=== PATIENT | female | born 1945 | race Caucasian/White ===

== ENCOUNTER → 2016-08-28 | Outpatient (CLI) | payer MEDICARE, OTHER ==
[~2016-08-28] MED LIST: ACETAMINOPHEN PO; ACETAMINOPHEN650 M1 PO; ALBUTEROL17 GM INH; ANEXSIA 7.5/3251 TA1 PO; ATENOLOL PO; CATAFLAM50 MG PO; COZAAR100 MG PO; DILTIAZEM ER60 MG PO; DOXYCYCLINE HY100 M3 PO; FEMARA2.5 MG PO; FUROSEMIDE40 MG PO; HCTZ PO; K-DUR20 ME1 PO; LEVAQUIN750 M1 PO; LIPITOR20 MG PO; LIPITOR40 MG PO; LOPRESSOR PO; LORTAB 7.51 TAB PO; METOPROLOL TAR100 MG PO; NORVASC PO; NORVASC10 MG PO; PRADAXA150 MG PO; PREDNISONE PO; PRILOSEC PO; PROAIR HFA8.5 GM INH; SYMBICORT 16010.2 GM INH; SYMBICORT INH; XANAX0.5 MG PO; XARELTO20 MG PO
[2016-08-28 13:50] LABS: HEMATOCRIT 36.1 % (35.0-45.0); MEAN CELL VOLUME 89.7 FL (83-96); MEAN CORPUSCULAR HEMOGLOBIN 29.9 PG (28-34); MEAN CORPUSCULAR HGB CONC 33.3 g/dL (30-36); MEAN PLATELET VOLUME 7.8 FL (6.5-11.5); RED BLOOD COUNT 4.03 X10e (3.90-5.30); RED CELL DISTRIBUTION WIDTH 19.4 % (11.0-15.5); WHITE BLOOD COUNT 8.2 X10e3 (4.0-10.5)
[2016-08-28 14:42] LABS: BLOOD UREA NITROGEN 13 mg/dL (9-23); BUN/CREATININE RATIO 18.57; CALCIUM SERUM 9.2 mg/dL (8.4-10.2); CARBON DIOXIDE 29 mmol/L (22-31); CHLORIDE 98 mmol/L (100-111); CREATININE SERUM 0.7 mg/dL (0.6-1.4); GLOM FILT RATE Estimated ABOVE60 mL/min (>60); GLUCOSE FASTING 146 mg/dL (70-110); SODIUM 138 mmol/L (135-145)
[2016-08-28 14:45] LABS: POTASSIUM 2.6 mmol/L (3.5-5.1)
== END | disposition home or self-care (01) ==
LOC: CAMB 12:05
PROVIDERS: Surgery
DX: Z01.812 Encounter for preprocedural laboratory examination (principal); C50.912 Malignant neoplasm of unspecified site of left female breast
CPT/HCPCS: 36415; 80048; 82947; 83735; 85027

== ENCOUNTER 2016-09-04 13:36 | Inpatient (IN) | payer MEDICARE, OTHER ==
--- NOTE | ~2016-09-04 | CO ---
Unit #: [id number] #: [id number] Patient: WILL HUNTER [id number] [address] [place], [place] [address] [id number] I MR#: [id number] NAME: WILL HUNTER ROOM: 320 Age: 71 Sex: F Admission Date: 09/04/2016 : 1945 Attending Physician: Philippe Teran M.D. Primary Care Physician: Amalia Boyd M.D. CONSULTATION REPORT REASON FOR CONSULTATION Atrial fibrillation with rapid ventricular response. HISTORY OF PRESENT ILLNESS This is a 71-year-old white female who is known to Dr. Rodriguez and has a history of hypertension, hyperlipidemia, chronic systolic heart failure and nonobstructive coronary artery disease. Her last echocardiogram in April found her to have an ejection fraction of 30% to 35%. 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 She is followed by Dr. Mathias and was scheduled last week for bilateral mastectomies but was cancelled because of hypokalemia. Her cancer has now advanced to the right breast. For the past 3-4 weeks she has been having a complaint of dyspnea at rest and on exertion. She went to her primary care physician's office and was treated for COPD exacerbation with steroid and antibiotics. She has been taking Mini-Neb treatments every 4 hours at home. She has been unable to sleep because of dyspnea. She sleeps propped up where she reports paroxysmal nocturnal dyspnea and orthopnea. She is positive for leg edema, as well. She has no reported chest pain or dizziness. She did have an episode where she felt like she was so dyspneic that she may pass out. She reports a nonproductive cough but no fever or chills. Upon further questioning, she also states she drinks a lot of water. She went to the office today and was directly admitted. She was noted to be in atrial fibrillation with rapid ventricular response with a rate up to 130 beats per minute. BNP elevated at 924. Electrolytes are within normal limits. She has been on chronic anticoagulation with Xarelto. PAST MEDICAL HISTORY 1. Lexiscan Cardiolite stress test, 05/30/2016, shows a medium sized area of stress-induced ischemia involving the anterior wall. Ejection fraction of 32%. 2. Cardiac catheterization, 05/31/2016, showed ejection fraction of 35%. Mid LAD 30%. Left main, circumflex, right coronary arteries normal. There was [id number] mitral regurgitation. 3. Two-D echocardiogram, 05/24/2016, showed an ejection fraction of 30% to 35% with moderate left and right atrial enlargement. Moderate mitral regurgitation and moderate tricuspid regurgitation. Right ventricular systolic pressure 40 mmHg. 4. Paroxysmal atrial fibrillation, on anticoagulation with Xarelto. 5. Hypertension. 6. Hyperlipidemia. 7. Chronic systolic heart failure. Unit #: [id number] #: [id number] Patient: WILL HUNTER 8. Diabetes mellitus type 2. 9. COPD. 10. Inflammatory left breast cancer, stage IV, status post chemotherapy with metastasis to the left breast. 11. Former smoker. PAST SURGICAL HISTORY 1. Appendectomy. 2. Hysterectomy. SOCIAL HISTORY The patient lives at home alone. She has a daughter who assists her with her care when needed. She previously smoked 1 pack to 1 1/2 packs of cigarettes daily but quit late last year. She denies illicit drug and alcohol use. FAMILY HISTORY Positive for pacemaker in her father. Mother had atrial fibrillation. ALLERGIES Penicillin. HOME MEDICATIONS 1. Diltiazem 60 mg daily. 2. Cozaar 100 mg daily. 3. Xarelto 20 mg daily. 4. Letrozole 2.5 mg daily. 5. Lopressor 100 mg t.i.d. 6. Lipitor 20 mg q.h.s. 7. Hydrocodone/acetaminophen 7.5/325 t.i.d. p.r.n. 8. Acetaminophen 325 mg q.4 hours p.r.n. 9. Furosemide 40 mg b.i.d. 10. Doxycycline 100 mg b.i.d. REVIEW OF SYSTEMS CONSTITUTIONAL: Negative for fever or chills. No weakness or fatigue. HEENT: No headache, hearing or visual changes or difficulty with swallowing. Negative for dizziness. CARDIOVASCULAR: Has no symptoms of angina. Positive for palpitations. Reports paroxysmal nocturnal dyspnea and orthopnea. No syncope. RESPIRATORY: Positive for dyspnea at rest and on exertion. Has a nonproductive cough. No hemoptysis. GASTROINTESTINAL: No abdominal pain, nausea or vomiting. No constipation or melena. EXTREMITIES: Positive for lower extremity edema. PHYSICAL EXAMINATION VITAL SIGNS: Blood pressure 153/98, heart rate 128, temperature 97.6. GENERAL: This is a very pleasant well-developed 71-year-old white female who is in no acute respiratory distress. NEUROLOGIC: She is awake, alert and oriented. There are no focal weaknesses. NECK: Trachea is midline. No thyromegaly or lymphadenopathy. No jugular venous distention. CARDIOVASCULAR: S1, S2. Heart sounds are normal with a soft systolic murmur heard best at the apex. No rubs or clicks. Irregularly irregular rhythm that is tachycardic. ABDOMEN: Soft, nontender with bowel sounds present. Unit #: [id number] #: [id number] Patient: WILL HUNTER EXTREMITIES: With 1+ leg edema. SKIN: Pale and dry. DIAGNOSTIC STUDIES LABORATORY STUDIES: Hemoglobin 12, hematocrit 37.7, platelet count 260, white count 9.7. Sodium 135, potassium 3.9, BUN 17, creatinine 1.1, glucose 124. Troponin less than 0.03. BNP 924. IMAGING: CAT scan of the chest pending. Chest x-ray pending. CARDIOVASCULAR STUDIES: Electrocardiogram - Atrial fibrillation with rapid ventricular response with a rate of 133 beats per minute. IMPRESSION 1. Acute on chronic systolic heart failure with reduced ejection fraction of 30% to 35%. 2. Paroxysmal atrial fibrillation with rapid ventricular response, on chronic anticoagulation with Xarelto. 3. Left inflammatory breast cancer status post chemotherapy with metastasis to the right breast. 4. Nonobstructive coronary artery disease per cardiac catheterization, 05/31/2016, with LAD 30% stenosis. 5. COPD. 6. Valvular heart disease with moderate mitral regurgitation and moderate tricuspid regurgitation. 7. Hypertension. 8. Hyperlipidemia. 9. Diabetes mellitus type 2. PLAN 1. Cardiology was consulted for atrial fibrillation with rapid ventricular response. Since the patient has been on full anticoagulation for more than 6 weeks, will attempt to convert the patient to normal sinus rhythm with IV amiodarone. 2. Continue oral beta-malinda and Cardizem for rate control. 3. Diurese the patient with IV diuretics. 4. TSH was normal 04/2016. 5. Will hold CT of the chest until a.m. because the patient is unable to lie down. Further recommendations to follow pending Dr. Rodriguez's evaluation. Thank you for allowing us to assist with this patient's care. Dictated by... Ag Dubose A.P.R.N. for Sally Hernandez/naila TD: 09/05/2016 07:46 JOB #: [id number] Unit #: [id number] #: [id number] Patient: WILL HUNTER E CONSULTATION REPORT X Ag Dubose APRN X CONSULTATION REPORT
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
--- NOTE | ~2016-09-04 | EKG ---
PATIENT: WILL HUNTER UNIT #: [id number] Ventricular Rate: 97 BPM Atrial Rate: 82 BPM QRS Duration: 98 ms Q-T Interval: 350 ms QTC Calculation(Bezet): 444 ms Calculated R Willis: 90 degrees Calculated T Willis: 70 degrees Diagnosis Line: Atrial fibrillation Diagnosis Line: Rightward axis Diagnosis Line: Nonspecific ST and T wave abnormality , probably Diagnosis Line: digitalis effect Diagnosis Line: Abnormal ECG Diagnosis Line: When compared with ECG of 04-SEP-2016 15:18, Diagnosis Line: (unconfirmed) Diagnosis Line: No significant change was found Diagnosis Line: Confirmed by RADHA EATON MD ([id number]) on 09/05/2016 Diagnosis Line: 7:33:40 PM INTERPRETING MD: ANGELITO DAVE
--- NOTE | ~2016-09-04 | EKG ---
PATIENT: WILL HUNTER UNIT #: [id number] Ventricular Rate: 133 BPM Atrial Rate: 150 BPM QRS Duration: 86 ms Q-T Interval: 326 ms QTC Calculation(Bezet): 485 ms Calculated R [place]: 84 degrees Calculated T [place]: 70 degrees Diagnosis Line: Atrial fibrillation with rapid ventricular Diagnosis Line: response Diagnosis Line: Abnormal ECG Diagnosis Line: When compared with ECG of 01-JUN-2016 08:14, Diagnosis Line: No significant change was found Diagnosis Line: Confirmed by ESTEBAN GARZON MD ([id number]) on Diagnosis Line: 09/05/2016 8:17:32 AM INTERPRETING MD: RYANN DAVE
--- NOTE | ~2016-09-04 | OR ---
Unit #: [id number] #: [id number] Patient: WILL HUNTER [id number] [address] [place], [place] [address] [id number] Parveen MR#: [id number] NAME: WILL HUNTER. [facility] Date of Procedure: 09/11/2016 Admission Date: 09/04/2016 Surgeon: Rigo Monteiro M.D. : 1945 Attending Physician: Philippe Teran M.D. Primary Care Physician: Amalia Boyd M.D. OPERATIVE REPORT PREOPERATIVE DIAGNOSES Inflammatory carcinoma left breast with positive left axillary nodes and metastatic disease. POSTOPERATIVE DIAGNOSES Inflammatory carcinoma left breast with positive left axillary nodes and metastatic disease. PROCEDURES PERFORMED 1. Left modified radical mastectomy. 2. Right simple mastectomy. 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 ANESTHESIA General LMA anesthesia. SPECIMENS Sent to pathology. COMPLICATIONS None apparent. FLUIDS 1500 mL of crystalloid. ESTIMATED BLOOD LOSS 50 mL. DRAINS Oy-Gee 10 mm flat x4. CONDITION The patient tolerated the procedure well. INDICATIONS FOR PROCEDURE The patient is a 71-year-old white female, who approximately 6 months ago was found to have inflammatory carcinoma of the left breast and a large mass with positive left axillary nodes. She was subsequently found to have metastatic disease in the mediastinum and lung. She underwent neoadjuvant therapy and presents at this time for a left modified radical Unit #: [id number] #: [id number] Patient: WILL HUNTER mastectomy and also because on PET scan, there was a suspicious area in the right breast and will have a right simple mastectomy performed as well. DESCRIPTION OF PROCEDURE After obtaining informed consent as well as receiving preoperative antibiotics and knee-high SCDs, the patient was brought to the operating room and after adequate general LMA anesthesia was obtained, had her chin, neck, chest, both breasts, and upper abdomen prepped and draped in a sterile fashion. An elliptical incision was made with a knife circumferentially around the nipple-areolar complex and the area of the left breast. I was taken down through the skin with a knife into the subdermal tissues and subcutaneous tissue with electrocautery. The superior flap was raised to the level of the pectoralis major musculature and meticulously avoiding the area of the patient's port. This was not violated. Hemostasis was obtained with electrocautery as well as micro-clips. An inferior flap was raised as well to the level of the chest wall. The breast was removed from medial to lateral taking the pectoralis major fascia with it with good hemostasis obtained with the electrocautery as well as micro-clips. The specimen was oriented for the pathologist and sent to pathology. The wound was irrigated. Hemostasis was obtained with the Bovie. Two 10 flat Yo-Gee drains were placed through separate stab incisions. One over the pectoralis major muscle and the other toward to the area of the axilla. Each was secured with a 2-0 silk suture. The subdermal tissues were reapproximated with a running 3-0 Vicryl suture. The skin was closed with 4-0 Vicryl subcuticular stitch. Benzoin and Steri-Strips were applied over the wound in an occlusive manner. At this point in time, an elliptical incision was made widely circumferentially around the area of inflammatory breast cancer and the area of the nipple-areolar complex with a knife and it was taken down through the skin with a knife and through the subdermal tissues and subcutaneous tissue with electrocautery. In a similar fashion, the superior flap was raised to the level of the pectoralis major musculature beneath the level of the clavicle. An inferior flap was raised to the level of the chest wall. Hemostasis was obtained with micro-clips as well as the electrocautery. The breast was removed from medial to lateral taking the pectoralis major fascia with it. Dissection was taken along the edge of the left pectoralis major musculature towards the area of the axilla. The patient had extensive pk disease prior to her neoadjuvant therapy. There were multiple hard nodes at this point. Many extended up and around the area of the left axillary vein. The majority of the axillary contents were dissected free from the surrounding structures using electrocautery, micro-clips, and medium hemoclips. 2-0 Vicryl ties were used as well. Some pk tissue had to be left behind as it was intermittently involved with the area of the left axillary vein and went above it. We were able to divide the scarred pk tissue and take the majority of it out meticulously avoiding the area of the left axillary vein, the long thoracic nerve, and the thoracodorsal nerve. It was taken en bloc with the specimen. Hemostasis was obtained with electrocautery as well as medium and micro-clips and 2-0 Vicryl ties. The specimen was oriented and sent to pathology. The wound was copiously irrigated. All irrigation was evacuated. There was good hemostasis in all areas of dissection. A 10 flat Yo-Gee drains x2 were placed through separate stab incisions. One over the pectoralis major muscle and one toward the area of the axilla. The drains were secured with a 2-0 silk suture. The subdermal tissues were reapproximated with a running 3-0 Vicryl suture. The skin was closed with a 4-0 subcuticular stitch. Benzoin Steri-Strips were applied over the wound in an occlusive manner. Fluffs were applied to both axilla and over the incisions bilaterally. A Unit #: [id number] #: [id number] Patient: WILL HUNTER Kerlix wrap was placed around the chest wall followed by an Adis wrap. Split dressings were placed around the drain sites. Needle counts, sponge counts, and instrument counts were all correct as reported by the scrub nurse x2. The patient went from the operative room to the recovery room in stable condition. Dictated by... Sally Vail/bailee TD: 09/12/2016 01:18 JOB #: [id number] CC: [facility] Jefe Farris M.D. OPERATIVE REPORT Page 1 of 1 X Rigo Monteiro MD X PROCEDURE OPERATIVE NOTE
--- NOTE | ~2016-09-04 | CT57 ---
[facility] A Service of [facility] RADIOLOGY TEXT RESULTS PATIENT: WILL HUNTER LOCATION: [facility] 320-01 : [birth year] UNIT #: [id number] AGE: [address]: Philippe Teran MD SEX: F ORDER DR: [id number] [facility] [address] [place], [place] [address] [id number] I MR#: [id number] Acc #: [id number] NAME: WILL HUNTER. : 1945 SEX: F STUDY DATE/TIME: 09/05/2016 0944 UNIT: [address] ROOM: 320 STUDY DESCRIPTION: CT Chest Wo Cont Attending Physician: Philippe Teran M.D. Ordering Physician: Lance Mathias M.D. Primary Care Physician: Amalia Boyd M.D. MEDICAL IMAGING REPORT This report is preliminary unless electronic signature is present EXAM Chest CT chest without contrast, 09/05/2016, 0944 hours. CLINICAL HISTORY 71-year-old woman with a history of breast carcinoma and chemotherapy, completed 6 weeks ago, complaining of shortness of air, weakness for 1 day. History of prior CHF. COMPARISON PET/CT 08/04/2016, chest x-ray 09/04/2016 and 08/31/2016. TECHNIQUE Helical noncontrasted images were obtained from the thoracic inlet through the adrenal glands. Sagittal and coronal reconstructions were performed. Total exam DLP 293 mGy-cm. This CT exam was performed with one or more of the following radiation dose reduction techniques: automatic exposure control, adjustment of mA and/or kV according to patient size, and iterative reconstruction. FINDINGS Images through the thoracic inlet demonstrate no thyroid mass. There is a right central venous port catheter with tip in the upper right atrium without change. Mild ectasia of the ascending aorta is stable. There are coronary artery calcifications. There is no pericardial fluid. There is new trace dependent left pleural effusion. No right pleural effusion is seen. There are small left superior mediastinal lymph nodes similar to prior exam measuring up to 1.2 cm. These are unchanged. There are persistent clustered lymph nodes in the left axilla with left breast diffuse increase in interstitial markings, diffuse skin thickening with underlying mass. These findings appear stable. The lung window images demonstrate STS. [facility] A Service of [facility] RADIOLOGY TEXT RESULTS PATIENT: WILL HUNTER LOCATION: [facility] 320-01 : [birth year] UNIT #: [id number] AGE: [address]: Philippe Teran MD SEX: F ORDER DR: underlying emphysematous change. No discrete measurable nodules are seen. Previous nodules are now represented by areas of linear density which could represent scarring or residua from prior metastasis. For example, at the previous 9 mm nodule in the right upper lobe, there is linear density present now. No new nodules are seen. There is no right effusion. Limited views through the upper abdomen demonstrate calcified granulomatous changes in the liver and spleen. There is no liver or adrenal metastasis seen. There is no definite lytic lesion or acute fracture. There is a sclerotic density involving the right aspect of L1 measuring just a few millimeters in size and a slightly larger sclerotic density involving the right aspect of L2. These appear unchanged from PET/CT 08/04/2016 and were not PET avid and are likely benign bone islands. IMPRESSION 1. There is trace dependent left pleural effusion with no right pleural effusion. There is no acute pulmonary density to suggest pneumonia or edema. 2. Previous pulmonary parenchymal nodules have resolved. There are areas of linear scar or reticular scar at the site of previous nodules in the lungs. No new or developing density is seen. 3. Persistent left superior mediastinal, left axillary lymphadenopathy with skin thickening and diffuse edema in the left breast similar to PET/CT 08/04/2016. 4. There are several old healed left rib fractures unchanged. 5. There are 2 sclerotic, small, rounded densities in the L1 and L2 vertebrae which are unchanged from 08/04/2016 and were not PET-avid and are felt more likely to represent bone islands than bone metastases. Additionally, these are unchanged from MRI lumbar spine 08/30/2012, strongly favoring benign bone islands. Dictated by... Dolores White M.D. THIS IS AN ELECTRONICALLY VERIFIED REPORT Dolores White M.D. at 09/06/2016 9:29 AM YOLANDE/willie TD: 09/05/2016 14:38 JOB #: [id number] MEDICAL IMAGING REPORT COPY
--- NOTE | ~2016-09-04 | DS ---
Unit #: [id number] #: [id number] Patient: WILL HUNTER [id number] [address] [address] [id number] I MR#: [id number] NAME: WILL HUNTER. ROOM: 320 Age: 71 Sex: F Admission Date: 09/04/2016 : 1945 Discharge Date: Attending Physician: Philippe Teran M.D. Primary Care Physician: Amalia Boyd M.D. DISCHARGE SUMMARY DISCHARGE DIAGNOSES 1. Bilateral mastectomy. 2. History of atrial fibrillation. 3. Volume overload. 4. Chronic obstructive pulmonary disease status post exacerbation. 5. Anxiety. 6. Chronic pain. DETAILS OF THE HOSPITAL COURSE Patient was admitted with a complaint of shortness of breath, had rapid atrial fibrillation, seen by Cardiology, medications were adjusted and she has a history of breast cancer for which bilateral mastectomy was performed while she was admitted here and she has been doing well. I saw her this morning. PHYSICAL EXAMINATION VITAL SIGNS: Temperature 98. Pulse 87. Respiration 12. Blood pressure 130/70. NEUROLOGICAL: Awake, alert and oriented. No neuro deficit. HEENT: PERRLA, EOMI. NECK: Supple. No JVD. CHEST: Bilateral air entry. Bilateral mild rhonchi. GI: Nontender, soft, bowel sounds positive. EXTREMITIES: No edema. SKIN: No rashes. No ulcer. LYMPHATIC: No lymphadenopathy. DIAGNOSTIC STUDIES LABORATORY: Labs have been reviewed. IMAGING: Imaging has been reviewed. DISPOSITION Patient is discharged to the rehab. FOLLOWUP She will follow with: 1. General Surgery. 2. Cardiology. 3. Oncology. 4. Me in two weeks in the office. CONDITION ON DISCHARGE Patient hemodynamically stable at the time of discharge. Unit #: [id number] #: [id number] Patient: WILL HUNTER Dictated by... Sally Lamar TD: 09/15/2016 15:32 JOB #: [id number] DISCHARGE SUMMARY Page 1 of 1 X Philippe Teran MD X DISCHARGE SUMMARY
--- NOTE | ~2016-09-04 | CO ---
Unit #: [id number] #: [id number] Patient: WILL TORRES [id number] [address] [place], [place] [address] [id number] I MR#: [id number] NAME: WILL TORRES. ROOM: 320 Age: 71 Sex: F Admission Date: 09/04/2016 : 1945 Attending Physician: Philippe Teran M.D. Primary Care Physician: Amalia Boyd M.D. Consultation Date: 09/06/2016 CONSULTATION REPORT REASON FOR CONSULTATION Carcinoma of the left breast and possible carcinoma of the right breast. Thank you very much for asking us to see Ms. Torres. HISTORY OF PRESENT ILLNESS She is a 70-year-old white female. She was diagnosed with a left breast cancer and positive left axillary node 6 to 8 months ago. She also had an abnormality in the upper aspect of the right breast that was suspicious for carcinoma. She was scheduled as an outpatient for left modified radical mastectomy and right simple mastectomy; however, developed some cardiopulmonary issues. She was admitted to the hospital on 09/04/2016 with atrial fibrillation and rapid ventricular response. She is in the process of having becoming stable as from cardiopulmonary standpoint. Rest is reviewed at this time. So while in the hospital, her heart rate is under good control. We can proceed with the operative procedure. We were asked to see at this time to be evaluated for this procedure. PAST MEDICAL HISTORY Coronary artery disease, atrial fibrillation, hypertension, hyperlipidemia, chronic systolic heart failure, diabetes, COPD, and breast cancer. PAST SURGICAL HISTORY Appendectomy and hysterectomy. SOCIAL HISTORY Positive tobacco use. No alcohol use. FAMILY HISTORY Positive for heart disease. ALLERGIES Penicillin. MEDICATIONS Please see med rec sheet. REVIEW OF SYSTEMS Negative except for above. IMMUNIZATION STATUS Unknown. Unit #: [id number] #: [id number] Patient: WILL TORRES PHYSICAL EXAMINATION GENERAL: Well-developed, well-nourished white female, in no apparent distress. VITAL SIGNS: Afebrile. Vital signs stable. NECK: Supple. No thyromegaly or adenopathy. BACK: No CVA or spinous tenderness. BREAST: Breasts were examined in this supine position. The left breast has changes from resolution of her inflammatory breast cancer with chemotherapy. Her right breast has no palpable mass. There was some fullness in the left axilla. DIAGNOSTIC STUDIES LABORATORY RESULTS: Reveal the patient to have a CMP that shows a glucose of 230, BUN 38, creatinine 1.8, with a potassium 3.1. White count is 8.5 with hemoglobin 12.2, hematocrit 37.3. IMPRESSION A 70-year-old white female with biopsy-proven inflammatory left breast cancer and positive left axillary nodes and suspicious abnormality in the right breast for carcinoma. The patient was scheduled as an outpatient for left modified radical mastectomy and right simple mastectomy. We will proceed with this in the next few days. All the risks and benefits have again been fully explained to the patient in detail. She understands completely and requests to proceed. Dictated by... Sally Vail/bailee TD: 09/07/2016 06:29 JOB #: [id number] CC: Mena Salazar M.D. [facility] CONSULTATION REPORT X Rigo Monteiro MD X CONSULTATION REPORT
--- NOTE | ~2016-09-04 | CR63 ---
[facility] A Service of [facility] RADIOLOGY TEXT RESULTS PATIENT: WILL HUNTER LOCATION: [facility] 320-01 : [birth year] UNIT #: [id number] AGE: [address]: Philippe Teran MD SEX: F ORDER DR: [id number] [facility] [address]. [place], [place] [address] [id number] I MR#: [id number] Acc #: [id number] NAME: WILL HUNTER. : 1945 SEX: F STUDY DATE/TIME: 09/08/2016 UNIT: [address] ROOM: [facility] STUDY DESCRIPTION: CR Chest 2 View Attending Physician: Philippe Teran M.D. Ordering Physician: Sergio Rodriguez M.D. Primary Care Physician: Amalia Boyd M.D. MEDICAL IMAGING REPORT This report is preliminary unless electronic signature is present EXAM Chest, 2 views, 09/08/2016, 0944 hours. HISTORY 71-year-old woman with prior history of breast cancer complaining of short of air and weakness since 09/04/2016. COMPARISON STUDIES Chest CT, 09/05/2016, and chest x-ray 09/04/2016. FINDINGS Upright PA and lateral views of the chest demonstrate stable mild cardiomegaly and tortuous atherosclerotic aorta. The lungs are well-expanded and clear of acute densities. Benign calcified granulomatous changes are present. There is no pleural effusion seen. IMPRESSION 1. No acute cardiopulmonary findings. Benign calcified granulomatous changes are stable. No effusions. 2. Stable mild cardiomegaly and tortuous atherosclerotic aorta. Dictated by... Dolores White M.D. THIS IS AN ELECTRONICALLY VERIFIED REPORT Dolores White M.D. at 09/08/2016 6:16 PM Earlene TD: 09/08/2016 15:23 JOB #: [id number] [facility] A Service of [facility] RADIOLOGY TEXT RESULTS PATIENT: WILL HUNTER LOCATION: [facility] 320-01 : [birth year] UNIT #: [id number] AGE: [address]: Philippe Teran MD SEX: F ORDER DR: MEDICAL IMAGING REPORT COPY
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
--- NOTE | ~2016-09-04 | CR72 ---
[facility] A Service of [facility] & [facility] RADIOLOGY TEXT RESULTS PATIENT: WILL HUNTER LOCATION: [facility] 320-01 : [birth year] UNIT #: [id number] AGE: [address]: Philippe Teran MD SEX: F ORDER DR: [id number] [facility] [address] [place], [place] [address] [id number] I MR#: [id number] Acc #: [id number] NAME: WILL HUNTER. : 1945 SEX: F STUDY DATE/TIME: 09/04/2016 14:34 UNIT: [address] ROOM: [facility] STUDY DESCRIPTION: CR Chest Single View Portable Attending Physician: Philippe Teran M.D. Ordering Physician: Philippe Teran M.D. Primary Care Physician: Amalia Boyd M.D. MEDICAL IMAGING REPORT This report is preliminary unless electronic signature is present EXAM Portable chest 09/04/2016 INDICATIONS 71-year female with shortness of breath for 2 days. History of breast cancer. COMPARISON STUDIES Compared with 08/31/2016 FINDINGS Stable atelectasis in the left base. There is rather blunting of both costophrenic angles which may indicate trace pleural fluid bilaterally. Heart size stable. Atherosclerotic calcification of the aorta with tortuosity. Stable chest port. IMPRESSION 1. Stable atelectasis left base. 2. Blunting of both costophrenic angles bilaterally which may indicate trace pleural fluid or thickening. Dictated by... Vazquez Sandoval M.D. THIS IS AN ELECTRONICALLY VERIFIED REPORT Vazquez Sandoval M.D. at 09/05/2016 4:42 PM Benjamín TD: 09/04/2016 18:54 JOB #: [id number] MEDICAL IMAGING REPORT COPY
[~2016-09-04 13:36] MED LIST changes: -DOXYCYCLINE HY100 M3 PO
[2016-09-04] MEDS ORDERED: DOXYCYCLINE HY100 M3 PO (14:17)
[2016-09-04 14:50] LABS: HEMATOCRIT 37.7 % (35.0-45.0); MEAN CELL VOLUME 91.9 FL (83-96); MEAN CORPUSCULAR HEMOGLOBIN 29.3 PG (28-34); MEAN CORPUSCULAR HGB CONC 31.9 g/dL (30-36); MEAN PLATELET VOLUME 8.8 FL (6.5-11.5); RED BLOOD COUNT 4.1 X10e (3.90-5.30); RED CELL DISTRIBUTION WIDTH 19.7 % (11.0-15.5); WHITE BLOOD COUNT 9.7 X10e3 (4.0-10.5)
[2016-09-04 15:19] LABS: ALBUMIN SERUM 3.8 g/dL (3.5-5.0); BILIRUBIN,TOTAL 1.4 mg/dL (0.2-2.0); BUN/CREATININE RATIO 15.45; CALCIUM SERUM 9.2 mg/dL (8.4-10.2); CREATININE SERUM 1.1 mg/dL (0.6-1.4); GLOM FILT RATE Estimated 52.3 mL/min (>60); POTASSIUM 3.9 mmol/L (3.5-5.1); PROTEIN TOTAL SERUM 6.7 g/dL (6.0-8.3)
[2016-09-04 15:37] LABS: %MB 0.7 % (0.0-4.0); MB 1.1 ng/ml
[2016-09-06 06:29] LABS: HEMATOCRIT 37.3 % (35.0-45.0); HEMOGLOBIN 12.2 gm/dL (12.0-16.0); MEAN CELL VOLUME 90.5 FL (83-96); MEAN CORPUSCULAR HEMOGLOBIN 29.6 PG (28-34); MEAN CORPUSCULAR HGB CONC 32.7 g/dL (30-36); MEAN PLATELET VOLUME 8.3 FL (6.5-11.5); RED BLOOD COUNT 4.12 X10e (3.90-5.30); RED CELL DISTRIBUTION WIDTH 18.8 % (11.0-15.5); WHITE BLOOD COUNT 8.5 X10e3 (4.0-10.5)
[2016-09-06 06:50] LABS: ALBUMIN SERUM 3.6 g/dL (3.5-5.0); BILIRUBIN,TOTAL 1.1 mg/dL (0.2-2.0); BUN/CREATININE RATIO 21.11; CALCIUM SERUM 9.4 mg/dL (8.4-10.2); CREATININE SERUM 1.8 mg/dL (0.6-1.4); GLOM FILT RATE Estimated 29.7 mL/min (>60); MAGNESIUM 1.7 mg/dL (1.6-3.0); POTASSIUM 3.1 mmol/L (3.5-5.1); PROTEIN TOTAL SERUM 6.4 g/dL (6.0-8.3)
[2016-09-07 06:27] LABS: HEMATOCRIT 37.1 % (35.0-45.0); HEMOGLOBIN 12.1 gm/dL (12.0-16.0); MEAN CELL VOLUME 91.9 FL (83-96); MEAN CORPUSCULAR HEMOGLOBIN 29.9 PG (28-34); MEAN CORPUSCULAR HGB CONC 32.6 g/dL (30-36); MEAN PLATELET VOLUME 8.5 FL (6.5-11.5); RED BLOOD COUNT 4.04 X10e (3.90-5.30); RED CELL DISTRIBUTION WIDTH 18.8 % (11.0-15.5); WHITE BLOOD COUNT 10.5 X10e3 (4.0-10.5)
[2016-09-07 06:35] LABS: INR 1.2; PROTHROMBIN TIME (PATIENT) 13.2 SECONDS (9.6-11.5)
[2016-09-07 07:18] LABS: CALCIUM SERUM 9.3 mg/dL (8.4-10.2); CREATININE SERUM 1.4 mg/dL (0.6-1.4); GLOM FILT RATE Estimated 39.6 mL/min (>60); POTASSIUM 3.1 mmol/L (3.5-5.1)
[2016-09-08 06:00] LABS: HEMATOCRIT 37.5 % (35.0-45.0); HEMOGLOBIN 12.1 gm/dL (12.0-16.0); MEAN CELL VOLUME 92.5 FL (83-96); MEAN CORPUSCULAR HEMOGLOBIN 29.9 PG (28-34); MEAN CORPUSCULAR HGB CONC 32.3 g/dL (30-36); MEAN PLATELET VOLUME 8.3 FL (6.5-11.5); RED BLOOD COUNT 4.06 X10e (3.90-5.30); RED CELL DISTRIBUTION WIDTH 19.1 % (11.0-15.5); WHITE BLOOD COUNT 10.1 X10e3 (4.0-10.5)
[2016-09-08 07:52] LABS: CALCIUM SERUM 8.9 mg/dL (8.4-10.2); GLOM FILT RATE Estimated 58.4 mL/min (>60); POTASSIUM 3.6 mmol/L (3.5-5.1)
[2016-09-09 06:26] LABS: HEMOGLOBIN 12.4 gm/dL (12.0-16.0); MEAN CORPUSCULAR HEMOGLOBIN 29.6 PG (28-34); MEAN CORPUSCULAR HGB CONC 32.5 g/dL (30-36); MEAN PLATELET VOLUME 8.1 FL (6.5-11.5); RED BLOOD COUNT 4.18 X10e (3.90-5.30); RED CELL DISTRIBUTION WIDTH 19.1 % (11.0-15.5); WHITE BLOOD COUNT 10.4 X10e3 (4.0-10.5)
[2016-09-09 07:03] LABS: ALBUMIN SERUM 3.5 g/dL (3.5-5.0); ALKALINE PHOSPHATASE 58 U/L (32-92); ALT (SGPT) 42 U/L (10-40); AST (SGOT) 19 U/L (10-42); BILIRUBIN,TOTAL 0.7 mg/dL (0.2-2.0); BLOOD UREA NITROGEN 32 mg/dL (9-23); CALCIUM SERUM 8.8 mg/dL (8.4-10.2); CARBON DIOXIDE 30 mmol/L (22-31); CHLORIDE 101 mmol/L (100-111); CREATININE SERUM 0.8 mg/dL (0.6-1.4); GLOM FILT RATE Estimated ABOVE60 mL/min (>60); GLUCOSE FASTING 186 mg/dL (70-110); POTASSIUM 4.2 mmol/L (3.5-5.1); PROTEIN TOTAL SERUM 6.2 g/dL (6.0-8.3); SODIUM 141 mmol/L (135-145)
[2016-09-10 06:35] LABS: BLOOD UREA NITROGEN 28 mg/dL (9-23); BUN/CREATININE RATIO 31.11; CALCIUM SERUM 8.6 mg/dL (8.4-10.2); CARBON DIOXIDE 32 mmol/L (22-31); CHLORIDE 99 mmol/L (100-111); CREATININE SERUM 0.9 mg/dL (0.6-1.4); GLOM FILT RATE Estimated ABOVE60 mL/min (>60); GLUCOSE FASTING 168 mg/dL (70-110); MAGNESIUM 2.1 mg/dL (1.6-3.0); SODIUM 138 mmol/L (135-145)
[2016-09-11 05:56] LABS: HEMATOCRIT 38.8 % (35.0-45.0); HEMOGLOBIN 12.6 gm/dL (12.0-16.0); MEAN CELL VOLUME 91.4 FL (83-96); MEAN CORPUSCULAR HEMOGLOBIN 29.6 PG (28-34); MEAN CORPUSCULAR HGB CONC 32.4 g/dL (30-36); RED BLOOD COUNT 4.24 X10e (3.90-5.30); RED CELL DISTRIBUTION WIDTH 18.7 % (11.0-15.5); WHITE BLOOD COUNT 9.1 X10e3 (4.0-10.5)
[2016-09-11 06:05] LABS: INR 1.1; PROTHROMBIN TIME (PATIENT) 11.4 SECONDS (9.6-11.5)
[2016-09-11 06:34] LABS: BLOOD UREA NITROGEN 19 mg/dL (9-23); BUN/CREATININE RATIO 31.66; CALCIUM SERUM 8.4 mg/dL (8.4-10.2); CARBON DIOXIDE 29 mmol/L (22-31); CHLORIDE 100 mmol/L (100-111); CREATININE SERUM 0.6 mg/dL (0.6-1.4); GLOM FILT RATE Estimated ABOVE60 mL/min (>60); GLUCOSE FASTING 120 mg/dL (70-110); MAGNESIUM 1.8 mg/dL (1.6-3.0); SODIUM 137 mmol/L (135-145)
[2016-09-12 06:59] LABS: HEMATOCRIT 36.4 % (35.0-45.0); HEMOGLOBIN 11.7 gm/dL (12.0-16.0); MEAN CELL VOLUME 92.1 FL (83-96); MEAN CORPUSCULAR HEMOGLOBIN 29.7 PG (28-34); MEAN CORPUSCULAR HGB CONC 32.2 g/dL (30-36); RED BLOOD COUNT 3.95 X10e (3.90-5.30); RED CELL DISTRIBUTION WIDTH 19.5 % (11.0-15.5); WHITE BLOOD COUNT 11.2 X10e3 (4.0-10.5)
[2016-09-12 07:32] LABS: ALBUMIN SERUM 3.1 g/dL (3.5-5.0); ALKALINE PHOSPHATASE 57 U/L (32-92); ALT (SGPT) 25 U/L (10-40); AST (SGOT) 17 U/L (10-42); BILIRUBIN,TOTAL 0.9 mg/dL (0.2-2.0); BLOOD UREA NITROGEN 20 mg/dL (9-23); CALCIUM SERUM 8.6 mg/dL (8.4-10.2); CARBON DIOXIDE 27 mmol/L (22-31); CHLORIDE 101 mmol/L (100-111); CREATININE SERUM 0.8 mg/dL (0.6-1.4); GLOM FILT RATE Estimated ABOVE60 mL/min (>60); GLUCOSE FASTING 197 mg/dL (70-110); MAGNESIUM 2.2 mg/dL (1.6-3.0); POTASSIUM 5.2 mmol/L (3.5-5.1); PROTEIN TOTAL SERUM 5.7 g/dL (6.0-8.3); SODIUM 135 mmol/L (135-145)
[2016-09-13 08:00] LABS: BLOOD UREA NITROGEN 21 mg/dL (9-23); BUN/CREATININE RATIO 23.33; CREATININE SERUM 0.9 mg/dL (0.6-1.4); GLOM FILT RATE Estimated ABOVE60 mL/min (>60); GLUCOSE FASTING 125 mg/dL (70-110); SODIUM 137 mmol/L (135-145)
[2016-09-13 08:01] LABS: CALCIUM SERUM 8.6 mg/dL (8.4-10.2); CARBON DIOXIDE 28 mmol/L (22-31); CHLORIDE 103 mmol/L (100-111); POTASSIUM 4.8 mmol/L (3.5-5.1)
[2016-09-14 08:08] LABS: HEMATOCRIT 37.7 % (35.0-45.0); HEMOGLOBIN 12.1 gm/dL (12.0-16.0); MEAN CELL VOLUME 91.5 FL (83-96); MEAN CORPUSCULAR HEMOGLOBIN 29.3 PG (28-34); MEAN PLATELET VOLUME 8.2 FL (6.5-11.5); RED BLOOD COUNT 4.12 X10e (3.90-5.30); RED CELL DISTRIBUTION WIDTH 18.9 % (11.0-15.5); WHITE BLOOD COUNT 8.2 X10e3 (4.0-10.5)
[2016-09-14 08:50] LABS: BLOOD UREA NITROGEN 23 mg/dL (9-23); BUN/CREATININE RATIO 32.85; CALCIUM SERUM 8.9 mg/dL (8.4-10.2); CARBON DIOXIDE 31 mmol/L (22-31); CHLORIDE 96 mmol/L (100-111); CREATININE SERUM 0.7 mg/dL (0.6-1.4); GLOM FILT RATE Estimated ABOVE60 mL/min (>60); GLUCOSE FASTING 131 mg/dL (70-110); POTASSIUM 4.2 mmol/L (3.5-5.1); SODIUM 138 mmol/L (135-145)
== END 2016-09-15 17:11 | DRG 264 ==
LOC: C3A PCU 13:36
PROVIDERS: Internal Medicine; Internal Medicine Cardiovascular Disease; Nurse Practitioner Family; Surgery
PROC: 0HTT0ZZ Resection of Right Breast, Open Approach (ICD-10-PCS; 2016-09-11)
PROC: 0HTU0ZZ Resection of Left Breast, Open Approach (ICD-10-PCS; principal; 2016-09-11 08:00)
PROC: 07B60ZX Excision of Left Axillary Lymphatic, Open Approach, Diagnostic (ICD-10-PCS; 2016-09-11 08:00)
DX: I11.0 Hypertensive heart disease with heart failure (principal); C77.3 Secondary and unspecified malignant neoplasm of axilla and upper limb lymph nodes; I48.0 Paroxysmal atrial fibrillation; C79.81 Secondary malignant neoplasm of breast; J44.0 Chronic obstructive pulmonary disease with (acute) lower respiratory infection; I42.9 Cardiomyopathy, unspecified; J44.1 Chronic obstructive pulmonary disease with (acute) exacerbation; C50.912 Malignant neoplasm of unspecified site of left female breast; I50.23 Acute on chronic systolic (congestive) heart failure; Z79.01 Long term (current) use of anticoagulants; I25.10 Atherosclerotic heart disease of native coronary artery without angina pectoris; I08.1 Rheumatic disorders of both mitral and tricuspid valves; E78.5 Hyperlipidemia, unspecified; E11.9 Type 2 diabetes mellitus without complications; Z79.84 Long term (current) use of oral hypoglycemic drugs; F17.210 Nicotine dependence, cigarettes, uncomplicated; Z17.0 Estrogen receptor positive status [ER+]; Z90.710 Acquired absence of both cervix and uterus; Z88.0 Allergy status to penicillin; J20.9 Acute bronchitis, unspecified; F41.9 Anxiety disorder, unspecified; K21.9 Gastro-esophageal reflux disease without esophagitis
CPT/HCPCS: 71010; 71020; 71250; 80048; 80053; 82550; 82553; 83735; 83880; 84132; 84484; 85027; 85610; 86850; 86900; 86901; 86923; 87070; 87205; 88307; 88309; 88360; 93005; 94640; 94760; J0282; J0330; J0456; J1100; J1160; J1170; J1650; J1940; J2250; J2270; J2405; J2920; J2930; J3010; J3370; J3475

== ENCOUNTER → 2017-03-06 | Outpatient (CLI) | payer MEDICARE, OTHER ==
[~2017-03-06] MED LIST changes: +DOXYCYCLINE HY100 M3 PO
--- NOTE | ~2017-03-06 | CT55 ---
[facility] A Service of [facility] & [facility] RADIOLOGY TEXT RESULTS PATIENT: WILL HUNTER LOCATION: [facility] : [birth year] UNIT #: [id number] AGE: [address]: Lance Mathias MD SEX: F ORDER DR: [id number] [facility] [address] [place], [place] [address] [id number] O MR#: [id number] Acc #: [id number] NAME: WILL HUNTER. : 1945 SEX: F STUDY DATE/TIME: 03/06/2017 10:14 UNIT: [facility] ROOM: STUDY DESCRIPTION: CT Chest W Con Attending Physician: Lance Mathias M.D. Referring Physician: Lance Mathias M.D. Ordering Physician: Lance Mathias M.D. Primary Care Physician: Amalia Boyd M.D. MEDICAL IMAGING REPORT This report is preliminary unless electronic signature is present EXAM CT chest. INDICATIONS Breast cancer of the upper inner quadrant of the left female breast. Observation for metastatic disease. Restaging. TECHNIQUE CT of the chest with IV contrast. Coronal and sagittal reconstructions were obtained. This CT exam was performed with one or more of the following radiation dose reduction techniques: automatic exposure control, adjustment of mA and/or kV according to patient size, and iterative reconstruction. COMPARISON Concurrent CT abdomen, 03/06/2017; PET/CT 10/26/2016, and CT chest 09/05/2016. FINDINGS The patient has undergone bilateral mastectomy and left axillary lymph node dissection. There are some mild stranding within the left axilla without a discrete nodule or mass. This appearance is slightly improved from the prior study (previously FDG avid). There is resolution of the left internal mammary lymph node. A left supraclavicular lymph node has resolved. Small anterior mediastinal lymph nodes have also resolved. There is no new or enlarging lymph nodes. 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 There is no pericardial or pleural effusion. There is moderate emphysema. Numerous spiculated ground-glass and solid nodules in the lungs are slightly improved. A 0.8 cm nodule in the right upper lobe previously measured 0.9 cm. This nodule is less dense than on STS. [facility] A Service of [facility] & [facility] RADIOLOGY TEXT RESULTS PATIENT: WILL HUNTER [id number] [birth year] UNIT #: [id number] AGE: [address]: Lance Mathias MD SEX: F ORDER DR: the prior study. There is no focal consolidation. No new areas of consolidation. Please refer to a separately dictated report for details on the upper abdomen. No new osseous abnormalities. There is no pathologic fractures. IMPRESSION 1. Partial responsive therapy. 2. The supraclavicular and mediastinal lymph nodes have resolved. 3. Soft tissue stranding in the left axilla and small spiculated pulmonary nodules are improved from the prior study. This is consistent with partial response to therapy. Dictated by... Guilherme Garcia M.D. THIS IS AN ELECTRONICALLY VERIFIED REPORT Guilherme Garcia M.D. at 03/08/2017 9:46 AM JUAN/lynda TD: 03/06/2017 19:14 JOB #: [id number] MEDICAL IMAGING REPORT Page 1 of 1 COPY
--- NOTE | ~2017-03-06 | CT5 ---
[facility] A Service [facility] RADIOLOGY TEXT RESULTS PATIENT: WILL HUNTER LOCATION: [facility] : 47 UNIT #: [id number] AGE: [address]: Lance Mathias MD SEX: F ORDER DR: [id number] [facility] [address] [place], [place] [address] [id number] O MR#: [id number] [facility] #: [id number] NAME: WILL HUNTER. : 1945 SEX: F STUDY DATE/TIME: 03/06/2017 10:14 UNIT: [facility] ROOM: STUDY DESCRIPTION: CT Abdomen W Cont Attending Physician: Lance Mathias M.D. Referring Physician: Lance Mathias M.D. Ordering Physician: Lance Mathias M.D. Primary Care Physician: Amalia Boyd M.D. MEDICAL IMAGING REPORT This report is preliminary unless electronic signature is present EXAM CT abdomen. INDICATIONS Metastatic breast cancer of the upper/inner quadrant left female breast. Restaging. Observation metastatic disease. TECHNIQUE CT of the abdomen with contrast. Coronal and sagittal reconstructions were obtained. This CT exam was performed with one or more of the following radiation dose reduction techniques: automatic exposure control, adjustment of mA and/or kV according to patient size, and iterative reconstruction. COMPARISON PET/CT dated 10/27/2016. FINDINGS Diffusely diminished attenuation throughout the hepatic parenchyma is indicative of hepatic steatosis. There is no intrahepatic or extrahepatic biliary dilatation. The gallbladder is contracted. The pancreas, spleen, and kidneys are unchanged. Small low-attenuation nodularity of the left adrenal gland is unchanged and compatible with small adrenal adenomas. No pathologically enlarged retroperitoneal or mesenteric lymph nodes. The abdominal aorta is ectatic measuring up to 2.9 cm. The bowel is not dilated. No acute osseous abnormalities. IMPRESSION 1. No evidence of metastatic disease in the abdomen. 2. Please refer to the separately dictated report for details on the chest. [facility] A Service [facility] RADIOLOGY TEXT RESULTS PATIENT: WILL HUNTER LOCATION: [facility] : [birth year] UNIT #: [id number] AGE: [address]: Lance Mathias MD SEX: F ORDER DR: Dictated by... Guilherme Garcia M.D. THIS IS AN ELECTRONICALLY VERIFIED REPORT Guilherme Garcia M.D. at 03/08/2017 9:46 AM JUAN/lynda TD: 03/06/2017 19:31 JOB #: [id number] MEDICAL IMAGING REPORT Page 1 of 1 COPY
[2017-03-06 12:21] LABS: POC - CREATININE 0.81 mg/dL (0.44-1.03); POC - GFR >60.0 mL/min (>60)
== END | disposition home or self-care (01) ==
LOC: CCAT 02-28 10:45
PROVIDERS: Internal Medicine Hematology & Oncology
DX: C50.212 Malignant neoplasm of upper-inner quadrant of left female breast (principal); Q23.9 Congenital malformation of aortic and mitral valves, unspecified; I50.21 Acute systolic (congestive) heart failure; I48.91 Unspecified atrial fibrillation; R91.8 Other nonspecific abnormal finding of lung field
CPT/HCPCS: 71260; 74160; 82565; Q9967